=== PATIENT | female | born 1950 | race Two or more races ===

== ENCOUNTER 2024-11-23 15:49 | Inpatient (IN) | payer BC, MEDICAID ==
[~2024-11-23] VITALS: Ht 157.5 cm; Wt 70.5 kg
--- NOTE | 2024-11-23 16:44 | ED.PDOC ---
HPI (NEURO) HPI Comments 74-year-old female brought in by family complaining of loss of balance resulting in a fall, head injury and loss of consciousness yesterday around 1300. Patient states she was walking when she felt off balance, fell, hit the right side of her head on a counter, then hit the left occipital part of her head on the floor. She states she believes she lost consciousness for a few minutes. She awakened on the floor, then developed nausea and vomiting. She was able to stand up and ambulate to her bedroom where she fell asleep. She notified her family members this morning, who took her to urgent care. While at urgent Care, she was noted to be very off balance when ambulating. She also notes intermittent blurred vision. She denies any focal weakness, abdominal pain or other injury from the fall. Chief Complaint: Fall Injury Time Seen by MD: 16:30 Primary Care Provider: ITA Chowdhury Notes: Nurses Notes, Medications, Allergies Information Source: Patient, Relative (Child) Mode of Arrival: Ambulatory Severity: Moderate Dizziness/Weakness Severity: Unable to do activities Headache Severity: None Timing: Hours Duration: Since onset, Hours Prehospital treatment: None Weakness Location: Generalized Onset: With light exertion Circumstances: Spontaneous Symptoms: Syncope, Difficulty walking, Other (blurred vision) Before: Normal During: Awake After: Normal Mentation History of: Hypertension Associated Signs and Symptoms: Nausea, Weakness Past Medical History PAST MEDICAL HISTORY: Depression, HTN Surgical History: Cholecystectomy Surgical History (Other): Carpl tunnel, right shoulder and right knee surgery APPLICATION PACKAGER History: No Pertinent APPLICATION PACKAGER History Family History Family History: Reviewed,noncontributory to illness Social History Smoker: Non-Smoker Alcohol: Denies ETOH Use Drugs: Denies Drug Use Lives In: Home Constitutional: reports: weakness; denies: chills, diaphoresis, fatigue, fever, malaise, sweats, others EENTM: reports: blurred vision; denies: double vision, ear bleeding, ear discharge, ear drainage, ear pain, ear ringing, eye pain, eye redness, hearing loss, mouth pain, mouth swelling, nasal discharge, nose bleeding, nose congestion, nose pain, photophobia, tearing, throat pain, throat swelling, voice changes, others Respiratory: denies: cough, hemoptysis, orthopnea, SOB at rest, shortness of breath, SOB with excertion, stridor, wheezing, others Cardiovascular: reports: syncope; denies: chest pain, dizzy spells, diaphoresis, Dyspnea on exertion, edema, irregular heart beat, left arm pain, lightheadedness, palpitations, PND, others Gastrointestinal: denies: abdomen distended, abdominal pain, blood streaked bowels, constipated, diarrhea, dysphagia, difficulty swallowing, hematemesis, melena, nausea, poor appetite, poor fluid intake, rectal bleeding, rectal pain, vomiting, others Genitourinary: denies: abnormal vagina bleeding, burning, dyspareunia, dysuria, flank pain, frequency, hematuria, incontinence, pain, , vagina discharge, urgency, others Neurological: reports: dizziness; denies: fainting, headache, left sided numbness, left sided weakness, numbness, paresthesia, pre-existing deficit, right sided numbness, right sided weakness, seizure, speech problems, tingling, tremors, weakness, others Musculoskeletal: denies: back pain, gout, joint pain, joint swelling, muscle pain, muscle stiffness, neck pain, others Integumetry: denies: bruises, change in color, change in hair/nails, dryness, laceration, lesions, lumps, rash, wounds, others Allergic/Immunocompromised: denies: Difficulty Healing, Frequent Infections, Hives, Itching, others Hematologic/Lymphatic: denies: anemia, blood clots, easy bleeding, easy bruising, swollen glands, others Endocrine: denies: excessive hunger, excessive sweating, excessive thirst, excessive urination, flushing, intolerance to cold, intolerance to heat, unexplained weight gain, unexplained weight loss, others Psychiatric: denies: anxiety, bipolar disorder, depression, hopeless, panic disorder, schizophrenia, sleepless, suicidal, others All Other Systems: Reviewed and Negative Physical Exam General Appearance: No Apparent Distress HEENT: Other (Right forehead and left occipital soft tissue tenderness. Pupils and face symmetric. Moist mucous membranes.) Neck: Full Range of Motion, Other (Midline and paraspinal soft tissue tenderness to palpation) Respiratory: Chest Non-Tender, Lungs Clear, No Accessory Muscle Use, No Respiratory Distress, Normal Breath Sounds Cardiovascular: No Edema, No JVD, Regular Rate/Rhythm Breast Exam: Deferred Gastrointestinal: Non Tender, Soft Genitalia: Deferred Pelvic: Deferred Rectal: Deferred Extremities: Normal inspection, Normal range of motion, Non-tender, No pedal edema Musculoskeletal : Apperance: Normal Neurologic: Alert (Oriented x4), respiratory practitioner II-XII nml as Tested, No Motor Deficits, Normal Affect, Normal Mood, No Sensory Deficits Cerebellar Function: Ataxia (Mild) Reflexes: NOT DONE Skin: Dry, Normal Color, Warm Lymphatic: NOT DONE EKG EKG : Pulse Rate (adult): 75 Comments Sinus rhythm, rate 75, normal [place] interval, QRS prolonged at 142, QTC 464, left axis deviation, right bundle branch block, nonspecific T change. Was a procedure done? Was a procedure done?: No Differential Diagnosis (SZ) Seizure: Closed Head Injury, CVA/TIA, Hypocalcemia, Hypoglycemia, Hyponatremia, Syncope, Encephalopathy CVA: SAH General Weakness: Anemia, Dehydration, Dysrhythmia, Electrolyte imbalance, Labyrinthitis, Vertigo: central, Vertigo: peripheral Headache: Epidural Hemorrhage, Intracerebral Hemorrhage, Subarachnoid Hemorrhage, Subdural Hemorrhage X-Ray, Labs, Meds, VS Vital Signs Date Time Temp Pulse Resp B/P (MAP) Pulse Ox O2 Delivery O2 Flow Rate FiO2 11/23/24 17:54 69 18 95 Room Air 11/23/24 17:54 75 18 135/79 (97) 95 11/23/24 16:44 75 11/23/24 16:25 98.0 84 16 192/83 (119) 97 98.0 11/23/24 16:25 75 Lab Test 11/23/24 17:16 11/23/24 17:00 11/23/24 16:20 Range/Units White Blood Count 6.7 4.4-10.8 10^3/uL Red Blood Count 4.65 4.0-5.20 10^6/uL Hemoglobin 14.3 12.2-16.2 g/dL Hematocrit 41.1 36.0-46.0 % Mean Corpuscular Volume 88.5 80.0-100.0 fL Mean Corpuscular Hemoglobin 30.9 28.0-32.0 pg Mean Corpuscular Hemoglobin Concent 34.9 32.0-36.0 g/dL Red Cell Distribution Width 12.6 11.8-14.3 % Platelet Count 225 140-450 10^3/uL Mean Platelet Volume 7.8 6.9-10.8 fL Neutrophils (%) (Auto) 73.6 37.0-80.0 % Lymphocytes (%) (Auto) 19.7 10.0-50.0 % Monocytes (%) (Auto) 4.6 0.0-12.0 % Eosinophils (%) (Auto) 1.4 0.0-7.0 % Basophils (%) (Auto) 0.7 0.0-2.0 % Neutrophils # (Auto) 4.9 1.6-8.6 10 ^3/uL Lymphocytes # (Auto) 1.3 0.4-5.4 10 ^3/uL Monocytes # (Auto) 0.3 0-1.3 10 ^3/uL Eosinophils # (Auto) 0.1 0-0.8 10 ^3/uL Basophils # (Auto) 0 0-0.2 10 ^3/uL Nucleated Red Blood Cells 0.0 % Sodium Level 142 136-145 mmol/L Potassium Level 3.9 3.5-5.1 mmol/L Chloride Level 106 98-107 mmol/L Carbon Dioxide Level 29 20-31 mmol/L Anion Gap 7 5-15 Blood Urea Nitrogen 11 9-23 mg/dL Creatinine 0.66 0.550-1.02 mg/dL Glomerular Filtration Rate Calc 93 >90 mL/min BUN/Creatinine Ratio 16.7 10.0-20.0 Serum Glucose 102 74-106 mg/dL Calcium Level 9.4 8.7-10.4 mg/dL Troponin I High Sensitivity 5 </=34 ng/L B-Type Natriuretic Peptide 79.42 0-100 pg/mL Urine Color Yellow Yellow Urine Clarity Clear Clear Urine pH 5.5 5.0-9.0 Urine Specific [place] 1.019 1.001-1.035 Urine Protein Negative Negative Urine Ketones Negative Negative Urine Blood Negative Negative /uL Urine Nitrite Negative Negative Urine Bilirubin Negative Negative Urine Urobilinogen Normal Negative mg/dL Urine Leukocyte Esterase 1+ Negative /uL Urine RBC 2 0 - 4 /hpf Urine Microscopic WBC 2 0-5 /HPF Urine Squamous Epithelial Cells Few <5 /hpf Urine Bacteria Few H None Seen /hpf Urine Mucus Few None Seen Urine Glucose Normal Normal mg/dL POC Glucose 103 70-106 mg/dl Current Medications Medications (Trade) Dose Ordered Sig/Janak Route Start Time Stop Time Status Last Admin Acetaminophen/ Hydrocodone Bitart (Boyle 5/325MG Tab) 1 tab ONCE ONCE PO 11/23/24 17:00 11/23/24 17:01 DC 11/23/24 17:59 Ondansetron HCl (Zofran Po) 4 mg ONCE ONCE PO 11/23/24 17:00 11/23/24 17:01 DC 11/23/24 18:00 Meclizine HCl (Antivert Tablet) 50 mg ONCE ONCE PO 11/23/24 17:00 11/23/24 17:01 DC 11/23/24 17:00 PROCEDURE(s): HWOCT - HEAD WITHOUT CONTRAST REASON: fall, head inj wih loc, dizzy ORDER NUMBER(s): [id number], ACCESSION NUMBER(s): [id number] EXAM: CT HEAD WITHOUT CONTRAST INDICATION: fall, head inj wih loc, dizzy TECHNIQUE: CT of the head without intravenous contrast. Radiation Dose : 1. Head: CT Dose: CTDI volume is 51.14 mGy. Dose-length product is 1471.36 mGy*cm The dose indicators for CT are the volume Computed Tomography (CT) Dose Index (CTDIvol) and the Dose Length Product (DLP), and are measured in units of mGy and mGy-cm, respectively. These indicators are not patient dose, but values g enerated from the CT scanner acquisition factors. The report includes radiation exposure data for exposures received during this examination. COMPARISON: None FINDINGS: There is no evidence of acute intracranial hemorrhage, extra-axial collection, mass effect, midline shift, herniation or hydrocephalus. The ventricles, sulci and cisterns are age appropriate. The diaz-white differentiation is intact. Patchy periventricular and subcortical white matter hypoattenuation is nonspecific but may be related to small vessel ischemic disease. The visualized paranasal sinuses and mastoid air cells are clear. The surrounding soft tissues and osseous structures are unremarkable. IMPRESSION: 1. No acute intracranial abnormality. Radiation optimization: All CT scans at this facility use at least one of these dose optimization techniques: automated exposure control mA and/or kV a djustment per patient size (includes targeted exams where dose is matched to clinical indication) or iterative reconstruction. EDURE(s): CS2 - CERVICAL WITHOUT CONTRAST REASON: neck pain sp fall ORDER NUMBER(s): [id number], ACCESSION NUMBER(s): [id number] EXAM: CT CERVICAL WITHOUT CONTRAST HISTORY: neck pain sp fall COMPARISON: None CTDIvol 51 mGy, DLP 1471 mGy*cm. TECHNIQUE: Multiple axial CT images of the spine were obtained using bone algorithm. Axial and coronal reformatting was done. Bone and soft tissue windows were reviewed. FINDINGS: Dextro scoliosis. Moderate multilevel degenerative disc disease. 4 mm anterior subluxation of C4 on C5. 2 mm anterior subluxation C5 on C6. Reversal of the normal lordotic curvature of the cervical spine. Moderately severe multilevel degenerative disc disease. Vascular calcification of the aortic arch. IMPRESSION: No fracture Subluxations MRI recommended if clinical symptoms persist X-Ray, Labs, Meds, VS Comment 74-year-old female with a history of hypertension and depression brought in by family for evaluation of loss of balance resulting in a head injury with loss of consciousness Vitals remarkable for BP 192/83 Exam remarkable for right forehead and left occipital soft tissue tenderness, midline and paraspinal cervical neck tenderness, mildly ataxic gait Rhythm strip independently interpreted by me: Sinus rhythm, rate seventy-five, no ectopy. Head CT unremarkable CT cervical spine FINDINGS: Dextro scoliosis. Moderate multilevel degenerative disc disease. 4 mm anterior subluxation of C4 on C5. 2 mm anterior subluxation C5 on C6. Reversal of the normal lordotic curvature of the cervical spine. Moderately severe multilevel degenerative disc disease. Vascular calcification of the aortic arch. IMPRESSION: No fracture Subluxations MRI recommended if clinical symptoms persist CBC, basic metabolic panel, BNP and troponin unremarkable. UA abnormal consistent with mild UTI Patient treated with the following in the ED: Boyle 5/325 mg p.o., Zofran ODT 4 mg p.o., meclizine 50 mg p.o., Rocephin 1 g IV On re-evaluation, there have been no new neurologic changes. Patient states pain has improved. BP is 135/79. Other vitals were stable. Plan is to admit the patient for brain and/or spine MRI and neuro and/or ortho spine evaluation. Time of 1ST Reevaluation: 17:00 Reevaluation 1ST: Unchanged Time of 2ND Reevaluation: 18:37 Reevaluation 2ND: Improved Patient Education/Counseling: Diagnosis, Treatment, Prognosis Family Education/Counseling: Diagnosis, Treatment, Prognosis Departure 1 Departure Time of Disposition: 18:37 Impression: Primary Impression: Head injury with loss of consciousness Additional Impressions: Ataxia Closed subluxation of cervical spine Qualified Codes: S13.100A - Subluxation of unspecified cervical vertebrae, initial encounter UTI (urinary tract infection) Qualified Codes: N39.0 - Urinary tract infection, site not specified Disposition: ADMITTED INPATIENT Admit to: [facility] Condition: Guarded Critical Care Note Critical Care Time?: No Stability Stability form required: No Heart Score Heart Score: Heart Score Response (Comments) Value History N/A 0 EKG N/A 0 Age N/A 0 Risk Factors N/A 0 Troponin N/A 0 Total 0 I personally scribed for ADRYAN BURGOS MD ([email or web address]) on 11/23/24 at 16:4 4. Electronically submitted by Brent Isabel ([email or web address]). ADRYAN BURGOS MD Nov 23, 2024 16:44
[2024-11-23] MEDS: MECLIZINE HCL 25 MG TAB PO ONE (17:00)
[2024-11-23 17:18] LABS: Urine Bacteria FEW /hpf (None Seen); Urine Blood Negative /uL (Negative); Urine Clarity Clear (Clear); Urine Color Yellow (Yellow); Urine Mucus FEW (None Seen); Urine Protein, UAD Negative (Negative); Urine Specific Gravity 1.019 (1.001-1.035); Urine Squamous Epithelial Cell FEW /hpf (<5); Urine Urobilinogen Normal (Negative); Urine WBC 2 /HPF (0-5); Urine pH 5.5 (5.0-9.0)
[2024-11-23 17:31] LABS: Basophils # (auto) 0 10 ^3/uL (0-0.2); Basophils % (auto) 0.7 % (0.0-2.0); Eosinophils # (auto) 0.1 10 ^3/uL (0-0.8); Eosinophils % (auto) 1.4 % (0.0-7.0); Hematocrit 41.1 % (36.0-46.0); Hemoglobin 14.3 g/dL (12.2-16.2); Lymphocytes # (auto) 1.3 10 ^3/uL (0.4-5.4); Lymphocytes % (auto) 19.7 % (10.0-50.0); Mean Corpuscular Hemoglobin 30.9 pg (28.0-32.0); Mean Corpuscular Hgb Conc. 34.9 g/dL (32.0-36.0); Mean Corpuscular Volume 88.5 fL (80.0-100.0); Monocytes # (auto) 0.3 10 ^3/uL (0-1.3); Monocytes % (auto) 4.6 % (0.0-12.0); Neutrophils # (auto) 4.9 10 ^3/uL (1.6-8.6); Neutrophils % (auto) 73.6 % (37.0-80.0); Platelet Count (auto) 225 10^3/uL (140-450); Red Blood Cells 4.65 10^6/uL (4.0-5.20); Red Cell Distribution Width 12.6 % (11.8-14.3); White Blood Cell 6.7 10^3/uL (4.4-10.8)
[2024-11-23 17:39] LABS: Chloride 106 mmol/L (98-107); Potassium 3.9 mmol/L (3.5-5.1); Sodium 142 mmol/L (136-145)
[2024-11-23 17:40] LABS: Anion Gap 7 (5-15); Calcium 9.4 mg/dL (8.7-10.4); Carbon Dioxide 29 mmol/L (20-31)
[2024-11-23 17:45] LABS: BUN/Creatinine Ratio 16.7 (10.0-20.0); Blood Urea Nitrogen 11 mg/dL (9-23); Glucose 102 mg/dL (74-106)
--- NOTE | 2024-11-23 17:52 | DVH ---
EXAM: CT HEAD WITHOUT CONTRAST INDICATION: fall, head inj wih loc, dizzy TECHNIQUE: CT of the head without intravenous contrast. Radiation Dose : 1. Head: CT Dose: CTDI volume is 51.14 mGy. Dose-length product is 1471.36 mGy*cm The dose indicators for CT are the volume Computed Tomography (CT) Dose Index (CTDIvol) and the Dose Length Product (DLP), and are measured in units of mGy and mGy-cm, respectively. These indicators are not patient dose, but values generated from the CT scanner acquisition factors. The report includes radiation exposure data for exposures received during this examination. COMPARISON: None FINDINGS: There is no evidence of acute intracranial hemorrhage, extra-axial collection, mass effect, midline s hift, herniation or hydrocephalus. The ventricles, sulci and cisterns are age appropriate. The diaz-white differentiation is intact. Patchy periventricular and subcortical white matter hypoattenuation is nonspecific but may be related to small vessel ischemic disease. The visualized paranasal sinuses and mastoid air cells are clear. The surrounding soft tissues and osseous structures are unremarkable. IMPRESSION: 1. No acute intracranial abnormality. Radiation optimization: All CT scans at this facility use at least one of these dose optimization rayshawn hniques: automated exposure control mA and/or kV adjustment per patient size (includes targeted exam s where dose is matched to clinical indication) or iterative reconstruction.
[2024-11-23] MEDS: HYDROcodone-ACET 5/325MG TAB PO ONE (17:59)
[2024-11-23] MEDS: ONDANSETRON ODT 4 MG TAB PO ONE (18:00)
--- NOTE | 2024-11-23 18:02 | DVH ---
EXAM: CT CERVICAL WITHOUT CONTRAST HISTORY: neck pain sp fall COMPARISON: None CTDIvol 51 mGy, DLP 1471 mGy*cm. TECHNIQUE: Multiple axial CT images of the spine were obtained using bone algorithm. Axial and king l reformatting was done. Bone and soft tissue windows were reviewed. FINDINGS: Dextro scoliosis. Moderate multilevel degenerative disc disease. 4 mm anterior subluxation of C4 on C5. 2 mm anterior subluxation C5 on C6. Reversal of the normal lordotic curvature of the cervical spine. Moderately severe multilevel degenerative disc disease. Vascular calcification of the aortic arch. IMPRESSION: No fracture Subluxations MRI recommended if clinical symptoms persist
[2024-11-23] MEDS: cefTRIAXone 1GM/50ML D5W 50 ML IV ONE (21:45)
[2024-11-23] MEDS: LOSARTAN POTASSIUM 25 MG TAB PO ONE (22:40)
[2024-11-24] VITALS (7 sets, daily range): BP systolic 128–156; BP diastolic 48–79; PULSE 67–90; RESP 12–18; TEMP 97.7–98.4; O2SAT 90–97
[2024-11-24] MEDS ORDERED: MECLIZINE HCL 25 MG TAB PO PRN (03:15)
--- NOTE | 2024-11-24 03:17 | DVHHPRES ---
History of Present Illness Resident Creating Document: STEPHEN VIDESPUJACELSO RESIDENT History of Present Illness Patient is a 74-year-old female with a past medical history of hypertensive heart disease, depression, questionable vertigo presented to the ED with a chief complaint of episode of loss of consciousness on Saturday afternoon. Patient reported she was in her washroom and she got up after urinating felt dizzy following which she lost balance and fell to the ground and hit her head. She reportedly passed out for 1-2 minutes and then regained consciousness was not c onfused, no bowel or bladder incontinence, fall was unwitnessed and patient got up slowly and walk to her bedroom and slept. She reports having similar episode of dizziness when she gets out from the bed or from sitting position, occasionally reports of sensation of spinning but she has never been diagnosed with vertigo. Since the fall yesterday patient has been having heaviness in the head, feeling cramped up and reports sometimes when she gets up to walk she leans onto a side. She was brought by her daughter to the hospital today in the afternoon for evaluation. Patient does not report of any history of arrhythmia, coronary artery disease or any familial history of coronary artery disease or sudden . Patient denies having recent sick contacts, cough, fever, chills, diarrhea or vomitings in the last 1 week. She denies any history of a stroke. Past medical history: As per HPI Past surgical history: Cholecystectomy, surgery for carpal tunnel syndrome, right shoulder surgery 6 times Social history: Patient denies smoking, alcohol, drug use Home medications: Wellbutrin 300 mg, venlafaxine 25 mg, losartan 100 mg Patient's PCP and resource program teacher is down [facility] Review of Systems Review of Systems Examined with the bedside Reports of being unstable when she walks and still feels dizzy, mildly blurred distance vision Denied headache, palpitations, chest pain, shortness of breath, nausea or vomiting Currently does not complain of any sensation of spinning Allergies: Coded Allergies: NO KNOWN ALLERGIES (Unverified , 11/23/24) Medications Current Medications Medications Dose Ordered Sig/Janak Route Start Time Stop Time Status Last Admin Dose Admin Losartan Potassium 75 mg DAILY PO 11/24/24 10:00 Bupropion HCl 150 mg BID@07,19 PO 11/24/24 07:00 Exam Vital Signs Vital Signs Date Time Temp Pulse Resp B/P (MAP) Pulse Ox O2 Delivery O2 Flow Rate FiO2 11/24/24 01:31 98.0 86 16 156/52 (86) 97 98.0 11/23/24 17:54 Room Air Exam Constipation: Patient was alert and oriented to time, place and person and does not appear to be in acute distress Gen - no pallor, no icterus, no cyanosis, no clubbing, no LAD, no edema . Skin - Patients skin is warm and dry. HEENT - normocephalic, atraumatic, moist mucous membranes. Neck - full ROM, no LAD, no JVD Pulmonary - B/L equal air entry , no rales or wheezes cardiovascular - normal S1,S2 heard. no murmurs heard. GI - soft , nontender abdomen. no hepatospleenomegaly. Bowel sounds normoactive Neurological - Sensory: Bilateral sensation to temperature, temperature, position intact Motor: Bilateral upper extremity strength 5/5, bilateral lower extremity strength 5/5 Cranial nerves CN 2- visual acuity intact, normal visual field CN 3,4,6- extraocular movements normal CN 5- normal facial sensation and jaw strength CN 7- normal facial muscle strength CN 8- hearing normal CN 9,10- uvula central, no difficulty swallowing CN 11- normal shoulder shrug CN 12- tongue midline Cerebellar: Nose to finger test abnormal-dysmetria, questionable Romberg test Labs/Xrays Labs Test 11/23/24 18:11 11/23/24 17:16 11/23/24 17:00 11/23/24 16:20 Range/Units Troponin I High Sensitivity 4 </=34 ng/L White Blood Count 6.7 4.4-10.8 10^3/uL Red Blood Count 4.65 4.0-5.20 10^6/uL Hemoglobin 14.3 12.2-16.2 g/dL Hematocrit 41.1 36.0-46.0 % Mean Corpuscular Volume 88.5 80.0-100.0 fL Mean Corpuscular Hemoglobin 30.9 28.0-32.0 pg Mean Corpuscular Hemoglobin Concent 34.9 32.0-36.0 g/dL Red Cell Distribution Width 12.6 11.8-14.3 % Platelet Count 225 140-450 10^3/uL Mean Platelet Volume 7.8 6.9-10.8 fL Neutrophils (%) (Auto) 73.6 37.0-80.0 % Lymphocytes (%) (Auto) 19.7 10.0-50.0 % Monocytes (%) (Auto) 4.6 0.0-12.0 % Eosinophils (%) (Auto) 1.4 0.0-7.0 % Basophils (%) (Auto) 0.7 0.0-2.0 % Neutrophils # (Auto) 4.9 1.6-8.6 10 ^3/uL Lymphocytes # (Auto) 1.3 0.4-5.4 10 ^3/uL Monocytes # (Auto) 0.3 0-1.3 10 ^3/uL Eosinophils # (Auto) 0.1 0-0.8 10 ^3/uL Basophils # (Auto) 0 0-0.2 10 ^3/uL Nucleated Red Blood Cells 0.0 % Sodium Level 142 136-145 mmol/L Potassium Level 3.9 3.5-5.1 mmol/L Chloride Level 106 98-107 mmol/L Carbon Dioxide Level 29 20-31 mmol/L Anion Gap 7 5-15 Blood Urea Nitrogen 11 9-23 mg/dL Creatinine 0.66 0.550-1.02 mg/dL Glomerular Filtration Rate Calc 93 >90 mL/min BUN/Creatinine Ratio 16.7 10.0-20.0 Serum Glucose 102 74-106 mg/dL Calcium Level 9.4 8.7-10.4 mg/dL B-Type Natriuretic Peptide 79.42 0-100 pg/mL Urine Color Yellow Yellow Urine Clarity Clear Clear Urine pH 5.5 5.0-9.0 Urine Specific [place] 1.019 1.001-1.035 Urine Protein Negative Negative Urine Ketones Negative Negative Urine Blood Negative Negative /uL Urine Nitrite Negative Negative Urine Bilirubin Negative Negative Urine Urobilinogen Normal Negative mg/dL Urine Leukocyte Esterase 1+ Negative /uL Urine RBC 2 0 - 4 /hpf Urine Microscopic WBC 2 0-5 /HPF Urine Squamous Epithelial Cells Few <5 /hpf Urine Bacteria Few H None Seen /hpf Urine Mucus Few None Seen Urine Glucose Normal Normal mg/dL POC Glucose 103 70-106 mg/dl Assessment/Plan Assessment/Plan Syncope, ?vasovagal ? Orthostatic hypotension, rule out cardiac cause Possible BPPV - CT cervical spine shows anterior 4 mm anterior subluxation of C4 on C5, 2 mm anterior subluxation of C5 on C6, moderately severe multilevel degenerative disc disease - head CT shows no acute intracranial abnormality - ECG shows sinus rhythm with a right bundle-branch block, no blocks - echocardiogram pending - vitamin B12 pending Hypertensive urgency Hypertensive heart disease with possible diastolic failure - losartan 100 mg and nifedipine 30 mg - echocardiogram H/o major depressive disorder - continued on bupropion 150 b.i.d. PUD prophylaxis: Famotidine Goals of care discussed with the patient for over 31 minutes. Full code Plan discussed with Dr. Pham Plan discussed with: Patient My Orders Orders - CATHERINE VIDES Procedure Category Date Status Time Admit ADMIT 11/23/24 Transmitted 22:22 Oxygen By Nasal RT 11/23/24 Transmitted Cannula 22:22 Stat Ekg For Chest APOLLO 11/23/24 In Process Pain 22:22 Notify Of Changes APOLLO 11/23/24 In Process From Base 22:22 Director Of Development For APOLLO 11/23/24 In Process 24 Hours 22:22 Emergency Dysrhythmia APOLLO 11/23/24 In Process Protocol 22:22 Rhythm Strips Once APOLLO 11/23/24 In Process Every Shift 22:22 Echo 2d Mode Cardiac US 11/23/24 Logged DOP 22:22 Losartan Tablet PHA 11/24/24 In Process (Cozaar Tablet) 10:00 Bupropion Tablet PHA 11/24/24 In Process (Wellbutrin Tablet) 07:00 Complete Blood Count LAB 11/24/24 Logged 04:00 Comprehensive LAB 11/24/24 Logged Metabolic Panel 04:00 Vitamin B12 LAB 11/24/24 Logged 04:00 Lipid Panel LAB 11/24/24 Logged 04:00 Thyroid Stimulating LAB 11/24/24 Logged Hormone 04:00 Cardiac DIET 11/24/24 Transmitted Diet-2gna,Lofat,Lochol Breakfast Date of Service: Nov 23, 2024 Billing Provider: CHRISTOPHE PHAM MD Common Visit Codes: 95795-[id number] INP/OBS CARE (HIGH) Secondary Visit Codes: [id number] CARE PLAN 30 MINUTES CATHERINE VIDES RESIDENT Nov 24, 2024 03:17
[2024-11-24] MEDS: NIFEdipine ER 30 MG TAB PO ONE (05:16)
[2024-11-24 06:07] LABS: Basophils # (auto) 0 10 ^3/uL (0-0.2); Basophils % (auto) 0.7 % (0.0-2.0); Eosinophils # (auto) 0.2 10 ^3/uL (0-0.8); Eosinophils % (auto) 3.5 % (0.0-7.0); Hematocrit 38.2 % (36.0-46.0); Hemoglobin 13.2 g/dL (12.2-16.2); Lymphocytes # (auto) 2.2 10 ^3/uL (0.4-5.4); Lymphocytes % (auto) 38.9 % (10.0-50.0); Mean Corpuscular Hemoglobin 30.5 pg (28.0-32.0); Mean Corpuscular Hgb Conc. 34.5 g/dL (32.0-36.0); Mean Corpuscular Volume 88.5 fL (80.0-100.0); Monocytes # (auto) 0.4 10 ^3/uL (0-1.3); Monocytes % (auto) 7.7 % (0.0-12.0); Neutrophils # (auto) 2.8 10 ^3/uL (1.6-8.6); Neutrophils % (auto) 49.2 % (37.0-80.0); Nucleated Red Blood Cells % 0.1 %; Platelet Count (auto) 223 10^3/uL (140-450); Red Blood Cells 4.32 10^6/uL (4.0-5.20); Red Cell Distribution Width 12.6 % (11.8-14.3); White Blood Cell 5.8 10^3/uL (4.4-10.8)
[2024-11-24 06:15] LABS: Alanine Aminotransferase 22 U/L (7-40); Albumin 4.3 g/dL (3.2-4.8); Alkaline Phosphatase 59 U/L (46-116); Anion Gap 7 (5-15); Aspartate Aminotransferase 22 U/L (13-40); BUN/Creatinine Ratio 19.2 (10.0-20.0); Blood Urea Nitrogen 14 mg/dL (9-23); Calcium 9.3 mg/dL (8.7-10.4); Carbon Dioxide 31 mmol/L (20-31); Chloride 104 mmol/L (98-107); Glucose 96 mg/dL (74-106); Potassium 3.8 mmol/L (3.5-5.1); Sodium 142 mmol/L (136-145); Total Protein 7.2 g/dL (5.7-8.2)
[2024-11-24 06:16] LABS: Bilirubin, Total 0.4 mg/dL (0.2-1.0)
[2024-11-24] MEDS: buPROPion HCL 75 MG TAB PO SCH (06:32)
[2024-11-24 06:50] LABS: Triglycerides 125 mg/dL (< 150)
[2024-11-24 06:51] LABS: LDL Cholesterol 98 mg/dL (< 100)
[2024-11-24 06:52] LABS: HDL Cholesterol 52 mg/dL (40-59)
[2024-11-24 06:53] LABS: Cholesterol 163 mg/dL (< 200)
[2024-11-24] MEDS: CYANOCOBALAMIN (B-12) 1000 MCG/1 ML VIAL IM ONE (09:09)
[2024-11-24] MEDS ORDERED: LOSARTAN POTASSIUM 25 MG TAB PO SCH (10:00)
[2024-11-24] MEDS: FAMOTIDINE 20 MG TAB PO SCH (10:21)
[2024-11-24] MEDS: NIFEdipine ER 30 MG TAB PO SCH (10:21)
[2024-11-24] MEDS: LOSARTAN POTASSIUM 25 MG TAB PO SCH (10:22)
--- NOTE | 2024-11-24 12:25 | ECG ---
[facility] Test Date: 2024-11-23 Test Time: 16:25:53 Pat Name: CHARLETTE AGUDELO Department: ER Room: 0216T Gender: F Python Programmer: FELICITAS : 1950 Requested By: ADRYAN BARNES Order Number: [id number] Reading MD: Nile Valdez Measurements Intervals [place] Rate: 75 P: 22 WV: 129 QRS: -14 QRSD: 142 T: 22 QT: 415 QTc: 464 Interpretive Statements Sinus rhythm Right bundle branch block Electronically Signed On 11-25-2024 14:57:07 PDT by Nile Valdez Please click the below link to view image of tracing.
--- NOTE | 2024-11-24 13:15 | DVHPN2 ---
Assessment/Plan Assessment/Plan Progress note 74 F with HTN, MDD admitted for syncope. Patient had syncope w/o prodrome which leads to fall and LOC w/ vomiting. Physical exam AOx4 PERLLA MMM no neuro deficit Clear breath sounds S1 S2 RRR no murmur Abdomen soft nontender No LE edema Labs EKG imaging reviewed Assessment and plan HTN MDD Syncope Head trauma w/ LOC Possible BPPV? DJD c spine repeat CT in 24 hour or if any neuro deficit telemetry echo resume home meds, however holding welbutrin as possible syncope due to polypharmacy roberto halpike avoid BEERS full code dvt ppx ambulatory diet cardiac Plan discussed with: Patient Date of Service: Nov 24, 2024 Billing Provider: ZEYAD VAUGHAN MD Common Visit Codes: [id number] INP/OBS CARE(HIGH) ZEYAD VAUGHAN MD Nov 24, 2024 13:15
[2024-11-24] MEDS ORDERED: LOSA-535 PO (18:36)
[2024-11-24] MEDS ORDERED: VENL37.588 PO (18:38)
[2024-11-24] MEDS ORDERED: BUPR-346 PO (18:39)
[2024-11-24] MEDS ORDERED: VENL37.572 PO (18:40)
[2024-11-24] MEDS ORDERED: FLUT1AER3 IN (18:42)
[2024-11-24] MEDS: KETOROLAC TROMETH 30 MG/ML 1ML VIAL IV ONE (21:35)
[2024-11-24] MEDS: ACETAMINOPHEN 325 MG TAB PO ONE (21:35)
[2024-11-25] VITALS (8 sets, daily range): BP systolic 121–158; BP diastolic 54–76; PULSE 67–89; RESP 16–20; TEMP 97.6–98.6; O2SAT 92–95
--- NOTE | 2024-11-25 08:32 | DVH ---
EXAM: CT HEAD WITHOUT CONTRAST INDICATION: r/o sdh repeat EXAM DATE: 11/25/2024 07:46 AM COMPARISON: CT HEAD WITHOUT CONTRAST on DOS: 11/23/24 TECHNIQUE: CT of the head without intravenous contrast. Radiation Dose Information: CTDI volume is 52.77 mGy. Dose-length product is 846.08 mGy*cm FINDINGS: There is no evidence of acute intracranial hemorrhage, extra-axial collection, mass effect, midline s hift, herniation or hydrocephalus. The ventricles, sulci and cisterns are age appropriate. The diaz-w kiesha differentiation is intact. The visualized paranasal sinuses and mastoid air cells are clear. The surrounding soft tissues and osseous structures are unremarkable. IMPRESSION: No evidence of acute intracranial hemorrhage, mass effect or hydrocephalus. END IMPRESSION:
[2024-11-25] MEDS ORDERED: IBUPROFEN 400 MG TAB PO PRN (11:00)
--- NOTE | 2024-11-25 11:02 | DVHPN2 ---
Assessment/Plan Assessment/Plan Progress note 74 F with HTN, MDD admitted for syncope. Patient had syncope w/o prodrome which leads to fall and LOC w/ vomiting. seen today during rounds, repeat CT neg, tele with tachycardia but no arrhythmia. echo wet read with AR and TR, good function. pending cardio clearance Physical exam AOx4 PERLLA MMM no neuro deficit Clear breath sounds S1 S2 RRR no murmur Abdomen soft nontender No LE edema Labs EKG imaging reviewed Assessment and plan HTN MDD Syncope, possible cardiac Head trauma w/ LOC BPPV ruled out DJD c spine repeat CT in 24 hour or if any neuro deficit telemetry echo resume home meds, however holding welbutrin as possible syncope due to polypharmacy roberto halpike neg avoid BEERS cardio full code dvt ppx ambulatory diet cardiac Plan discussed with: Patient My Orders Orders - ZEYAD VAUGHAN MD Procedure Category Date Status Time Head Without Contrast CT 11/25/24 Resulted 04:00 * Cardiology Consult CONS 11/25/24 Transmitted 10:47 Ibuprofen Tablet PHA 11/25/24 Transmitted (Motrin Tablet) 11:00 Acetaminophen Tablet PHA 11/25/24 Transmitted (Tylenol Tablet) 14:00 Date of Service: Nov 25, 2024 Billing Provider: ZEYAD VAUGHAN MD Common Visit Codes: [id number] INP/OBS CARE(MOD) ZEYAD VAUGHAN MD Nov 25, 2024 11:02
--- NOTE | 2024-11-25 12:26 | DVHINCON2 ---
Date Seen: Nov 25, 2024 Referring Physician MD Jack Reason for Consultation Syncope, echo with AR, MR and questionable TR. EKG RBBB History of Present Illness This is a 74-year-old female patient who presents to the emergency room with chief complaint of syncopal episode. The patient states that she went to the restroom, had an episode of urination, and when she went to get up began to feel extremely dizzy and then sustained a fall, hitting her head and losing consciousness. The patient is not entirely sure how long she was on the floor before waking up given that this was an unwitnessed fall and she lives alone. She came to the emergency room for further evaluation. Upon emergency room arrival, she was noted to have a blood pressure reaching as high as 192/83. Cardiology has been consulted at this time for further evaluation. Initial twelve lead electrocardiogram reveals normal sinus rhythm with right bundle branch block. She denies any chest pain. Troponin levels have been negative. Significant past medical history includes hypertension, chronic back pain, depression, and obesity. Patient reports following up with a agronomy research manager in the past "many years ago", but has not recently seen a agronomy research manager within the last year. It is noteworthy to mention that the patient admits to placing five transdermal lidocaine patches on the night prior to syncopal event. Past Medical History Past medical history reviewed. No other significant than mentioned above. Past Surgical History Right shoulder repair x6 Carpal tunnel Cholecystectomy Right knee meniscus repair Family History: Arthritis G8 MOTHER G8 FATHER Diabetes mellitus G8 MOTHER G8 FATHER FHx: congenital heart disease G8 MOTHER Family History Family history reviewed. Social History Denies the use of tobacco, alcohol or illicit drugs. Allergies: Coded Allergies: NO KNOWN ALLERGIES (Unverified , 11/23/24) Home Meds Reported Medications Srddqqxsaco-Thagfmwfhgth-Rlbkh (Trelegy Ellipta 100-62.5-25 Mcg/INH) 1 Aer Aer, 1 AER IN PRN, AER 11/24/24 Venlafaxine Hydrochloride (Effexor Xr) 37.5 Mg Cap, 25 MG PO DAILY, CAP 11/24/24 Bupropion Hcl (Bupropion Hcl) 100 Mg Tab, 300 MG PO Q8HR for 30 Days, MG 11/24/24 Losartan Potassium (Losartan Potassium) 100 Mg Tab, 100 MG PO DAILY for 30 Days, MG 11/24/24 Discontinued Reported Medications Venlafaxine Hcl (Venlafaxine Hcl Er) 37.5 Mg Cap, 1 CAP PO DAILY, #90 CAP 3 Refills 11/24/24 Home Meds Home medications reviewed. Current Medications Current Medications Medications (Trade) Dose Ordered Sig/Janak Route PRN Reason Start Time Stop Time Status Last Admin Ibuprofen (Motrin Tablet) 400 mg Q8HP PRN PO SEVERE PAIN (7-10 PAIN SCALE) 11/25/24 11:00 Acetaminophen (Tylenol Tablet) 650 mg Q8HR PO 11/25/24 14:00 Review of Systems Constitutional: No symptom reported Ears, Nose, & Throat: No symptom reported Eyes: No symptom reported Neurological: Syncope Pulmonary/Respiratory: No symptoms reported Cardiovascular: No symptom reported Gastrointestinal: No symptom reported Genitourinary: No symptom reported Musculoskeletal: No symptom reported Skin: No symptom reported Psychiatric: No symptom reported Endocrine: No symptom reported Hematologic/Lymphatic: No symptom reported Vital Signs Vital Signs Date Time Temp Pulse Resp B/P (MAP) Pulse Ox O2 Delivery O2 Flow Rate FiO2 11/25/24 10:18 125/54 11/25/24 08:00 Room Air* 0 21 11/25/24 07:45 98.6 67 20 92 98.6 Physical Exam General Appearance: Cooperative. Obese Pulmonary/Respiratory: Clear, bilateral breaths sounds. Cardiovascular/Chest: Regular rate and rhythm. Peripheral Pulses: 2+ Radial (R). 2+ Radial (L). 2+ Pedal (R). 2+ Pedal (L) Abdominal Exam: Normal bowel sounds. Ankle Exam: Negative ankle edema Lower extremities: Negative lower extremity edema Neuro/Mental Status: A/OX4, coherent. Thoughts/Psych: Normal thought pattern. Appropriate mood and affect. Good judgment and insight. Appearance: No acute distress. Skin Exam: Normal inspection. Normal color. Warm and dry. Labs/Diagnostic Data Labs Test 11/24/24 04:25 11/23/24 18:11 11/23/24 17:16 11/23/24 17:00 Range/Units White Blood Count 5.8 4.4-10.8 10^3/uL Red Blood Count 4.32 4.0-5.20 10^6/uL Hemoglobin 13.2 12.2-16.2 g/dL Hematocrit 38.2 36.0-46.0 % Mean Corpuscular Volume 88.5 80.0-100.0 fL Mean Corpuscular Hemoglobin 30.5 28.0-32.0 pg Mean Corpuscular Hemoglobin Concent 34.5 32.0-36.0 g/dL Red Cell Distribution Width 12.6 11.8-14.3 % Platelet Count 223 140-450 10^3/uL Mean Platelet Volume 8.3 6.9-10.8 fL Neutrophils (%) (Auto) 49.2 37.0-80.0 % Lymphocytes (%) (Auto) 38.9 10.0-50.0 % Monocytes (%) (Auto) 7.7 0.0-12.0 % Eosinophils (%) (Auto) 3.5 0.0-7.0 % Basophils (%) (Auto) 0.7 0.0-2.0 % Neutrophils # (Auto) 2.8 1.6-8.6 10 ^3/uL Lymphocytes # (Auto) 2.2 0.4-5.4 10 ^3/uL Monocytes # (Auto) 0.4 0-1.3 10 ^3/uL Eosinophils # (Auto) 0.2 0-0.8 10 ^3/uL Basophils # (Auto) 0 0-0.2 10 ^3/uL Nucleated Red Blood Cells 0.1 % Sodium Level 142 136-145 mmol/L Potassium Level 3.8 3.5-5.1 mmol/L Chloride Level 104 98-107 mmol/L Carbon Dioxide Level 31 20-31 mmol/L Anion Gap 7 5-15 Blood Urea Nitrogen 14 9-23 mg/dL Creatinine 0.73 0.550-1.02 mg/dL Glomerular Filtration Rate Calc 87 >90 mL/min BUN/Creatinine Ratio 19.2 10.0-20.0 Serum Glucose 96 74-106 mg/dL Calcium Level 9.3 8.7-10.4 mg/dL Total Bilirubin 0.4 0.2-1.0 mg/dL Aspartate Amino Transferase (AST) 22 13-40 U/L Alanine Aminotransferase (ALT) 22 7-40 U/L Alkaline Phosphatase 59 46-116 U/L Total Protein 7.2 5.7-8.2 g/dL Albumin 4.3 3.2-4.8 g/dL Triglycerides Level 125 < 150 mg/dL Cholesterol Level 163 < 200 mg/dL LDL Cholesterol 98 < 100 mg/dL HDL Cholesterol 52 40-59 mg/dL Vitamin B12 Level 179 L 211-911 pg/mL Thyroid Stimulating Hormone (TSH) 0.80 0.55-4.78 uIU/mL Troponin I High Sensitivity 4 </=34 ng/L B-Type Natriuretic Peptide 79.42 0-100 pg/mL Urine Color Yellow Yellow Urine Clarity Clear Clear Urine pH 5.5 5.0-9.0 Urine Specific [place] 1.019 1.001-1.035 Urine Protein Negative Negative Urine Ketones Negative Negative Urine Blood Negative Negative /uL Urine Nitrite Negative Negative Urine Bilirubin Negative Negative Urine Urobilinogen Normal Negative mg/dL Urine Leukocyte Esterase 1+ Negative /uL Urine RBC 2 0 - 4 /hpf Urine Microscopic WBC 2 0-5 /HPF Urine Squamous Epithelial Cells Few <5 /hpf Urine Bacteria Few H None Seen /hpf Urine Mucus Few None Seen Urine Glucose Normal Normal mg/dL Test 11/23/24 16:20 Range/Units POC Glucose 103 70-106 mg/dl Assessment Syncope, rule out cardiac etiology Hypertensive urgency ?Lidocaine induced arrhythmia Mild aortic insufficiency Mild tricuspid regurgitation Depression Obesity Plan/Recommendation We will continue with the following plan/recommendations (Dr. Valdez): * Transthoracic echocardiogram reveals EF 60% * Bilateral carotid ultrasound: Negative * Orthostatic vital signs * Blood pressure control * Continuous telemetry monitoring; notify cardiology team for any ECG changes Case discussed with . The patient admits to placing five transdermal lidocaine patches on her body the night prior to syncopal event. It is possible that the patient had a lidocaine induced arrhythmia. At the time of assessment, no significant cardiac events noted on environmental monitoring technician. Continue to closely mo nitor telemetry. Thank you for allowing us to care for this patient. Please call with any questions or concerns. Critical care time spent: 44 minutes This medical document was created using an electronic medical record system with voice recognition software and computerized dictation system. Although this document has been carefully reviewed, there might still be some phonetic and typographical errors. Occasional wrong-word or ``sound-alike substitutions may have occurred due to the inherent limitations of voice recognition software. These areas are purely typographical due to imperfections of the software programs and do not reflect any compromise in the patient's medical care. Please read the chart carefully and recognize, using context, where these substitutions have occurred. Plan discussed with: Patient NYHA Physical activity limitations: NA Date of Service: Nov 25, 2024 Billing Provider: DOMINICK GAMBOA Cardiology Common Codes: 11776-[id number] INP/OBS CARE (High) Cardiology Consultation Codes: 15170-[id number] CONSULT <45MIN DOMINICK GAMBOA Nov 25, 2024 12:26
--- NOTE | 2024-11-25 13:09 | DVH ---
Carotid Duplex Date: 11/25/2024 11:45 AM Clinical History: syncope Comparison: None Technique: Duplex Doppler evaluation of the extracranial carotid and vertebral arteries including col or Doppler and spectral/pulsed waveform analysis was performed. Findings: Velocities and ratios within normal limits. IMPRESSION: No hemodynamically significant stenosis noted in the right carotid system. No hemodynamically significant stenosis noted in the left carotid system. Bilateral atherosclerosis. Reference: Radiology 2003; 229:340-346
[2024-11-25] MEDS: ACETAMINOPHEN 325 MG TAB PO SCH (14:10)
--- NOTE | 2024-11-25 14:15 | DVHSR ---
APPROVED REPORT EXAM: Two-dimensional and M-mode echocardiogram with Doppler and color Doppler. Blood Pressure: 121/55 mmHg INDICATION Hypertension Syncope RISK FACTORS Hypertension: Obesity: Height: , Weight: DIMENSIONS LVDd4.7 (3.8-5.7cm)LA (2D)3.6 (1.9-4.0cm)Aortic Root3.5 (2.0-3.7cm) LVDs2.9 (2.5-4.0cm)LA (MM) (1.9-4.0cm)Aortic Cusp Exc1.8 (1.5-2.0cm) EF (%) 60.0 (55-70%)Rt. Atrium (1.9-4.0cm)Asc. Aorta cm IVSd1.1 (0.7-1.1cm)RV (D)4.5 (1.8-2.4cm) PWd0.9 (0.7-1.1cm) Mitral Valve MitralMitral Stenosis E wave0.61m/sMV Mean GR.mmHg A wave0.99m/sMV Peak GR.94mmHg E/A ratio0.62D MVAcm2 DECEL [id number] 1/2 Tim[place] Aortic Valve Aortic ValveAortic Stenosis V11.14m/Thu Mean GR.6mmHg V21.77m/Thu Peak GR.13mmHg LVOT Diameter2.3 (1.8-2.4cm)Doppler AVA2.67cm2 AI P 1/2 Vmdq793.49ms Pulmonic Valve V21.18m/s Tricuspid Valve TR Velocity2.48m/s [id number] Conclusion Sinus rhythm. Mild LV enlargement. Mild left atrial enlargement. Mild dilation of the sinuses of Valsalva. Mild aortic sclerosis. Left ventricular function is preserved at 60% with normal RV function. Mild aortic insufficiency. Mild aortic sclerosis. Mild tricuspid regurgitation. No pericardial effusion masses or vegetations.
[2024-11-26 01:00] VITALS: BP 131/55; PULSE 75; RESP 18; TEMP 98.3; O2SAT 94
[2024-11-26 05:00] VITALS: BP 126/85; PULSE 65; RESP 16; TEMP 98.1; O2SAT 95
--- NOTE | 2024-11-26 07:05 | ECG ---
[facility] Test Date: 2024-11-23 Test Time: 16:25:13 Pat Name: CHARLETTE AGUDELO Department: ER Room: 0216T B Gender: F 3Rd Mate: FELICITAS : 1950 Requested By: ADRYAN BARNES Order Number: [id number] Reading MD: Nile Valdez Measurements Intervals [place] Rate: 80 P: 37 NM: 140 QRS: -11 QRSD: 136 T: 15 QT: 408 QTc: 471 Interpretive Statements Sinus rhythm Right bundle branch block Baseline wander in lead(s) II,III,aVF,V1,V3 Electronically Signed On 11-26-2024 9:34:05 PDT by Nile Valdez Please click the below link to view image of tracing.
[2024-11-26 09:00] VITALS: BP 137/64; PULSE 66; RESP 16; TEMP 97; O2SAT 96
--- NOTE | 2024-11-26 09:22 | DVHDS2 ---
Discharge Summary Date of Admission Nov 23, 2024 at 22:22 Date of Discharge: Nov 26, 2024 Labs/Diagnostic Data: Laboratory Results Test 11/24/24 04:25 11/23/24 18:11 11/23/24 17:16 11/23/24 17:00 White Blood Count 5.8 10^3/uL (4.4-10.8) Red Blood Count 4.32 10^6/uL (4.0-5.20) Hemoglobin 13.2 g/dL (12.2-16.2) Hematocrit 38.2 % (36.0-46.0) Mean Corpuscular Volume 88.5 fL (80.0-100.0) Mean Corpuscular Hemoglobin 30.5 pg (28.0-32.0) Mean Corpuscular Hemoglobin Concent 34.5 g/dL (32.0-36.0) Red Cell Distribution Width 12.6 % (11.8-14.3) Platelet Count 223 10^3/uL (140-450) Mean Platelet Volume 8.3 fL (6.9-10.8) Neutrophils (%) (Auto) 49.2 % (37.0-80.0) Lymphocytes (%) (Auto) 38.9 % (10.0-50.0) Monocytes (%) (Auto) 7.7 % (0.0-12.0) Eosinophils (%) (Auto) 3.5 % (0.0-7.0) Basophils (%) (Auto) 0.7 % (0.0-2.0) Neutrophils # (Auto) 2.8 10 ^3/uL (1.6-8.6) Lymphocytes # (Auto) 2.2 10 ^3/uL (0.4-5.4) Monocytes # (Auto) 0.4 10 ^3/uL (0-1.3) Eosinophils # (Auto) 0.2 10 ^3/uL (0-0.8) Basophils # (Auto) 0 10 ^3/uL (0-0.2) Nucleated Red Blood Cells 0.1 % Sodium Level 142 mmol/L (136-145) Potassium Level 3.8 mmol/L (3.5-5.1) Chloride Level 104 mmol/L (98-107) Carbon Dioxide Level 31 mmol/L (20-31) Anion Gap 7 (5-15) Blood Urea Nitrogen 14 mg/dL (9-23) Creatinine 0.73 mg/dL (0.550-1.02) Glomerular Filtration Rate Calc 87 mL/min (>90) BUN/Creatinine Ratio 19.2 (10.0-20.0) Serum Glucose 96 mg/dL (74-106) Calcium Level 9.3 mg/dL (8.7-10.4) Total Bilirubin 0.4 mg/dL (0.2-1.0) Aspartate Amino Transferase (AST) 22 U/L (13-40) Alanine Aminotransferase (ALT) 22 U/L (7-40) Alkaline Phosphatase 59 U/L (46-116) Total Protein 7.2 g/dL (5.7-8.2) Albumin 4.3 g/dL (3.2-4.8) Triglycerides Level 125 mg/dL (< 150) Cholesterol Level 163 mg/dL (< 200) LDL Cholesterol 98 mg/dL (< 100) HDL Cholesterol 52 mg/dL (40-59) Vitamin B12 Level 179 pg/mL (211-911) Thyroid Stimulating Hormone (TSH) 0.80 uIU/mL (0.55-4.78) Troponin I High Sensitivity 4 ng/L (</=34) B-Type Natriuretic Peptide 79.42 pg/mL (0-100) Urine Color Yellow (Yellow) Urine Clarity Clear (Clear) Urine pH 5.5 (5.0-9.0) Urine Specific [place] 1.019 (1.001-1.035) Urine Protein Negative (Negative) Urine Ketones Negative (Negative) Urine Blood Negative /uL (Negative) Urine Nitrite Negative (Negative) Urine Bilirubin Negative (Negative) Urine Urobilinogen Normal mg/dL (Negative) Urine Leukocyte Esterase 1+ /uL (Negative) Urine RBC 2 /hpf (0 - 4) Urine Microscopic WBC 2 /HPF (0-5) Urine Squamous Epithelial Cells Few /hpf (<5) Urine Bacteria Few /hpf (None Seen) Urine Mucus Few (None Seen) Urine Glucose Normal mg/dL (Normal) Test 11/23/24 16:20 POC Glucose 103 mg/dl (70-106) Other Laboratory Tests 11/24/24 04:25 Brief Hx & Hospital Course: 74 F with HTN, MDD admitted for syncope. Patient had syncope w/o prodrome which leads to fall and LOC w/ vomiting. initial and repeat CT neg, tele with tachycardia but no arrhythmia. echo showed mild lv la enlargement, mild AI, TR, preserved LVEF and RV function. normal carotid US. orthostatic negative. noted wearing 5 lido patches prior to event, could be causal? cleared by cardio. stable to dc home. follow up with PCP for referral to cardio for OP holter. dc clinic in 2 weeks Condition at Discharge: Good Final Diagnosis/Problems List HTN MDD Syncope from lido induced arrhythmia? Head trauma w/ LOC SDH ruled out BPPV ruled out DJD c spine Discharge Disposition: Home Discharge Statement: "Patient was advised to return to the ER or call 911 if any headaches, dizziness, shortness of breath, chest pain, abdominal pain, bleeding, fevers, or worsening of medical condition. Patient was counseled about treatment plan, medications, possible side effects, patientverbalized understanding. All questions were answered to the best of my ability. This discharge took greater then 30 minutes in planning, reviewing documentation, counseling the patient, and discussing with other team members." ASSESSMENT ASSESSMENT Assessment Date of Service: Nov 26, 2024 Billing Provider: ZEYAD VAUGHAN MD Common Visit Codes: 65480-VZT/OBS DISCH DAY >30min ZEYAD VAUGHAN MD Nov 26, 2024 09:22
== END 2024-11-26 12:20 | disposition home or self-care (01) | DRG 309 ==
LOC: ER 15:49 → OVERFLOW 22:22 → TELE-CENTR 11-24 18:09
PROVIDERS: ADMIT Student in an Organized Health Care Education/Training Program; ATTEND Student in an Organized Health Care Education/Training Program
DX: I49.9 Cardiac arrhythmia, unspecified (principal); N39.0 Urinary tract infection, site not specified; S06.9X9A Unspecified intracranial injury with loss of consciousness of unspecified duration, initial encounter; I16.0 Hypertensive urgency; F32.9 Major depressive disorder, single episode, unspecified; G89.29 Other chronic pain; E66.9 Obesity, unspecified; I45.10 Unspecified right bundle-branch block; T41.3X5A Adverse effect of local anesthetics, initial encounter; M47.892 Other spondylosis, cervical region; Z68.28 Body mass index [BMI] 28.0-28.9, adult; Z83.3 Family history of diabetes mellitus; Z79.899 Other long term (current) drug therapy; Z90.49 Acquired absence of other specified parts of digestive tract; W18.39XA Other fall on same level, initial encounter; Y93.89 Activity, other specified; Y92.89 Other specified places as the place of occurrence of the external cause; Y99.8 Other external cause status
CPT/HCPCS: 36415; 70450; 72125; 80048; 80053; 80061; 81001; 82607; 82962; 83880; 84443; 84484; 85025; 93005; 93306; 93886; 96365; G0378; J1885; Q0162